=== PATIENT | female | born 1985 | race Caucasian/White ===

== ENCOUNTER 2020-09-12 09:45 | Outpatient (RCR) | payer OTHER, SELFPAY ==
--- NOTE | 2020-07-17 12:00 | PT.OPPOC ---
Physical, Occupational & Speech Therapy At [facility] Current Diagnoses Sciatica, unspecified side (07/17/20) Pelvic and perineal pain (07/17/20) Encounter for supervision of normal , unspecified, unspecified trimester (07/17/20) Visit Care Team Role Provider Type GLADYS Pinto Attending Provider Non-Staff Primary Care Provider Referring Provider Specialty: Obstetrics Address: [address] [place] [address], [id number] Email: Plan Of Care PT-OP-T Assessment and Plan Start: 07/17/20 14:35 Freq: Status: Active Protocol: Document 07/17/20 12:00 [facility] (Rec: 07/29/20 10:48 [facility] [email or web address]) Physical Therapy Assessment Rehab Potential Rehabilitation Potential Good Evaluation Complexity Number of Personal Factors/Comorbidities 0 Number of Body Systems Impaired 1-2 Clinical Presentation at Evaluation Stable Impairments Impairments Activity Tolerance,Functional Activities,Pain,Posture,ROM, Soft Tissue Mobility,Strength Goals lumbar muscle guarding Sewer Repairer Goal (LTG) With stretches and manual therapy techniques Velma is able improve the length of her lumbar paraspinals and reduce guarding. LTG Duration 6 weeks Pt stands in a increased lumbar lordotic posture Short Term Goal (STG) PT is educated on postural correction to decrease anterior pelvic tilt and pubic bone pain STG Duration 2 weeks pubic and tail bone pain from 4-7/10 Short Term Goal (STG) pt is educated in SI belt for help locking in the SI joint STG Duration 2 weeks Senior Care Goal (LTG) Pt is able to work on stabilizing exercises to help keep SI joint in alignment LTG Duration 6 weeks Assessment Summary Assessment Velma is a 35 year old female 2 para 1 who is 30 weeks with her second baby. She has been experiencing pubic bone and tail pain since May and symptoms are progressing. She has complaints of sciatic symptoms on her left which are also worsening the farther along she is with her . Velma reports feeling as if my bones hurt With examination today Velma stands with a increased lumbar lordosis and guarding of the lumbar parapspinals. She stands in a anterior pelvic tilt with her pelvis. With special tests for the SI joint her SI joint unlocks. She has a stretch weakness of the transverse abdominal muscles and instability of the SI joint with . Today time was spent on educating how to brace the SI with specific exercises, body mechanics training to help reduce strain to the SI joint and stretches to help with low back tightness. Velma will benefit from PT focusing on reducing low back tightness, stabilization exercises, SI belt for help during the remainder of her , and manual therapy techniques to help reduce muscle guarding and pain. Physical Therapy Plan Frequency and Duration Frequency of Treatment 1x/Week Duration of Treatment 8 Plan of Care Start Date 07/17/20 Plan of Care End Date 09/11/20 Therapeutic Interventions Therapeutic Interventions Home Exercise Program,Manual Therapy,Neuromuscular Re- education,Patient/Caregiver Education,Self-Care/Home Management,Soft Tissue Mobilization,Therapeutic Exercises Next Visit Focus/Plan Next Note Type Treatment Note Next Visit Plan check SI alignment, review stabilization exercises and work on manual release of the piriformis B Plan of Care Dates Plan of Care Start Date 07/17/20 Plan of Care End Date 09/11/20 Electronically Signed by: Radha Martinez, PT 07/29/20 [id number] Please Sign and Return: I have reviewed this Plan of Care and certify that the skilled therapy services above are required to meet the patient?s needs. Physician Signature Date Printed Name and Credentials Clinical Instructor Signature Printed Name and Credentials
--- NOTE | 2020-07-17 12:00 | PT.OIE ---
Current Diagnoses Sciatica, unspecified side (07/17/20) Pelvic and perineal pain (07/17/20) Encounter for supervision of normal , unspecified, unspecified trimester (07/17/20) Visit Care Team Role Provider Type GLADYS Pinto Attending Provider Non-Staff Primary Care Provider Referring Provider Specialty: Obstetrics Address: [address] [place], [place] [id number] Email: Physical Therapy Initial Evaluation PT-OP-A Visit Information Start: 07/17/20 12:10 Freq: Status: Active Protocol: Document 07/17/20 12:00 [facility] (Rec: 07/29/20 10:42 [facility] [email or web address]) Out-Patient Physical Therapy Visit Information Visit Information Visit Type Initial Evaluation Visit Start Time 12:00 Visit Stop Time 12:45 Total Visit Minutes 45 Visit Number 1 Evaluation Information Evaluation Date 07/17/20 PT-OP-B Current Condition Start: 07/17/20 12:10 Freq: Status: Active Protocol: Document 07/17/20 12:00 [facility] (Rec: 07/17/20 12:21 [facility] [id number]) Current Condition History of Current Condition Onset Date May 2020 Current Complaints pubic bone pain and tailbone pain in History of Current Condition 30 weeks , pain has been ongoing since May. Symptoms started with pubic bone pain at first. She feels like she traumatized her tailbone last pain at this point radiates from the tailbone. She feels like her bones hurt. Her daughter just turned 2. The plan is for vaginal delivery again. September 25 is due date. SHe can feel sciatic symptoms on her left. Some history of urinary urgency. Treatment Goals Patient/Caregiver Goals pt would like to decrease her pain with PT-OP-F Manual Assessment Start: 07/17/20 14:35 Freq: Status: Active Protocol: Document 07/17/20 12:00 [facility] (Rec: 07/29/20 10:57 [facility] [email or web address]) Manual Assessments Soft Tissue Assessment Soft Tissue Mobility Assessment lumbar paraspinal guarding and tightness, piriformis tightness bilaterally Joint Mobility Assessment Joint Mobility Assessment Instability of the SI joint with PT-OP-J Posture/Palpation/Skin Start: 07/17/20 14:35 Freq: Status: Active Protocol: Document 07/17/20 12:00 [facility] (Rec: 07/17/20 14:40 [facility] [email or web address]) Posture Evaluation Comments Posture Comments increased lumbar lordisos and anterior pelvic tilt Palpation Assessment Location piriformis Palpation Findings Spasm,Muscle Guarding Palpation Details tightness of the piriformis bilaterally lumbar paraspinals Palpation Details tightness and muscle guarding of the lumbar paraspinals PT-OP-K Range of Motion Start: 07/17/20 14:35 Freq: Status: Active Protocol: Document 07/17/20 12:00 [facility] (Rec: 07/29/20 10:57 [facility] [email or web address]) Lumbar Spine Range of Motion Lumbar Spine Active ROM Limitations Soft Tissue Tightness,Pain Comments Decreased lumbar ROM into flexion PT-OP-Q Treatments Start: 07/17/20 14:35 Freq: Status: Active Protocol: Document 07/17/20 12:00 [facility] (Rec: 07/17/20 14:39 [facility] [email or web address]) Therapeutic Exercises Supine Exercises supine ball squeeze Reps/Minutes x 10 reps Other Exercises piriformis stretch Comments firgure 4 if pt is okay being on her back quadruped TA Reps/Minutes 10 seconds on 10 seconds off x 10 reps gregorio pose Reps/Minutes 1-2 reps holding 30-60 seconds cat cow Reps/Minutes x 10 reps PT-OP-T Assessment and Plan Start: 07/17/20 14:35 Freq: Status: Active Protocol: Document 07/17/20 12:00 [facility] (Rec: 07/29/20 10:48 [facility] [email or web address]) Physical Therapy Assessment Rehab Potential Rehabilitation Potential Good Evaluation Complexity Number of Personal Factors/Comorbidities 0 Number of Body Systems Impaired 1-2 Clinical Presentation at Evaluation Stable Impairments Impairments Activity Tolerance,Functional Activities,Pain,Posture,ROM, Soft Tissue Mobility,Strength Goals lumbar muscle guarding Snipper Goal (LTG) With stretches and manual therapy techniques Velma is able improve the length of her lumbar paraspinals and reduce guarding. LTG Duration 6 weeks Pt stands in a increased lumbar lordotic posture Short Term Goal (STG) PT is educated on postural correction to decrease anterior pelvic tilt and pubic bone pain STG Duration 2 weeks pubic and tail bone pain from 4-7/10 Short Term Goal (STG) pt is educated in SI belt for help locking in the SI joint STG Duration 2 weeks Snipper Goal (LTG) Pt is able to work on stabilizing exercises to help keep SI joint in alignment LTG Duration 6 weeks Assessment Summary Assessment Velma is a 35 year old female 2 para 1 who is 30 weeks with her second baby. She has been experiencing pubic bone and tail pain since may and symptoms are progressing. She has complaints of sciatic symptoms on her left which are also worsening the farther along she is with her . Velma reports feeling as if my bones hurt With examination today Velma stands with a increased lumbar lordosis and guarding of the lumbar parapspinals. She stands in a anterior pelvic tilt with her pelvis. With special tests for the SI joint her SI joint unlocks. She has a stretch weakness of the transverse abdominal muscles and instability of the SI joint with . Today time was spent on educating how to brace the SI with specific exercises, body mechanics training to help reduce strain to the SI joint and stretches to help with low back tightness. Velma will benefit from PT focusing on reducing low back tightness, stabilization exercises, SI belt for help during the remainder of her , and manual therapy techniques to help reduce muscle guarding and pain. Physical Therapy Plan Frequency and Duration Frequency of Treatment 1x/Week Duration of Treatment 8 Plan of Care Start Date 07/17/20 Plan of Care End Date 09/11/20 Therapeutic Interventions Therapeutic Interventions Home Exercise Program,Manual Therapy,Neuromuscular Re- education,Patient/Caregiver Education,Self-Care/Home Management,Soft Tissue Mobilization,Therapeutic Exercises Next Visit Focus/Plan Next Note Type Treatment Note Next Visit Plan check SI alignment, review stabilization exercises and work on manual release of the piriformis B
--- NOTE | 2020-08-15 10:57 | PT.OTN ---
Current Diagnoses Sciatica, unspecified side (08/15/20) Pelvic and perineal pain (08/15/20) Encounter for supervision of normal , unspecified, unspecified trimester (08/15/20) Physical Therapy Treatment Note PT-OP-A Visit Information Start: 07/17/20 12:10 Freq: Status: Active Protocol: Document 08/15/20 10:00 [facility] (Rec: 08/15/20 10:08 [facility] [id number]) Out-Patient Physical Therapy Visit Information Visit Information Visit Type Treatment Note Visit Start Time 09:45 Visit Stop Time 10:30 Total Visit Minutes 45 Visit Number 2 PT-OP-B Current Condition Start: 07/17/20 12:10 Freq: Status: Active Protocol: Document 07/17/20 12:00 [facility] (Rec: 07/17/20 12:21 [facility] [id number]) Current Condition History of Current Condition Onset Date May 2020 Current Complaints pubic bone pain and tailbone pain in History of Current Condition 30 weeks , pain has been ongoing since May. Symptoms started with pubic bone pain at first. She feels like she traumatized her tailbone last pain at this point radiates from the tailbone. She feels like her bones hurt. Her daughter just turned 2. The plan is for vaginal delivery again. September 25 is due date. SHe can feel sciatic symptoms on her left. Some history of urinary urgency. Treatment Goals Patient/Caregiver Goals pt would like to decrease her pain with PT-OP-C Subjective Start: 07/17/20 12:10 Freq: Status: Active Protocol: Document 08/15/20 10:00 [facility] (Rec: 08/15/20 10:08 [facility] [id number]) OP-PT Subjective Patient Comments Patient Comments pt has been working on her stetches at home PT-OP-F Manual Assessment Start: 07/17/20 14:35 Freq: Status: Active Protocol: Document 07/17/20 12:00 [facility] (Rec: 07/29/20 10:57 [facility] [email or web address]) Manual Assessments Soft Tissue Assessment Soft Tissue Mobility Assessment lumbar paraspinal guarding and tightness, piriformis tightness bilaterally Joint Mobility Assessment Joint Mobility Assessment Instability of the SI joint with PT-OP-J Posture/Palpation/Skin Start: 07/17/20 14:35 Freq: Status: Active Protocol: Document 07/17/20 12:00 [facility] (Rec: 07/17/20 14:40 [facility] [email or web address]) Posture Evaluation Comments Posture Comments increased lumbar lordisos and anterior pelvic tilt Palpation Assessment Location piriformis Palpation Findings Spasm,Muscle Guarding Palpation Details tightness of the piriformis bilaterally lumbar paraspinals Palpation Details tightness and muscle guarding of the lumbar paraspinals PT-OP-K Range of Motion Start: 07/17/20 14:35 Freq: Status: Active Protocol: Document 07/17/20 12:00 [facility] (Rec: 07/29/20 10:57 [facility] [email or web address]) Lumbar Spine Range of Motion Lumbar Spine Active ROM Limitations Soft Tissue Tightness,Pain Comments Decreased lumbar ROM into flexion PT-OP-Q Treatments Start: 07/17/20 14:35 Freq: Status: Active Protocol: Document 08/15/20 10:51 [facility] (Rec: 08/15/20 10:57 [facility] [email or web address]) Therapeutic Exercises Other Exercises quadruped thoracic extension Reps/Minutes x 10 reps quadruped sidebends Reps/Minutes x 10 each piriformis stretch Comments worked on a stretch in quadruped quadruped TA Reps/Minutes 10 seconds on 10 seconds off x 10 reps gregorio pose Reps/Minutes 1-2 reps holding 30-60 seconds cat cow Reps/Minutes x 10 reps Manual Therapy Treatment Soft Tissue Mobilization STM to the low back and sacral region Comments pt positioned on the pillow in prone. She tolerated this well without complaints. Tightness in the piriformis and quadratus lumborum noted. PT-OP-T Assessment and Plan Start: 07/17/20 14:35 Freq: Status: Active Protocol: Document 08/15/20 10:51 [facility] (Rec: 08/15/20 10:57 [facility] [email or web address]) Physical Therapy Assessment Assessment Summary Assessment pt working on her stretches at home, notes sitting on a stool without back support aggravates her SI joint. Symptoms seem a little better today, pt tolerated STM treatment well without complaints. Sciatic pain seems to have decreased, pt notes one episode after sitting unsupported where she had to climb stairs for her daughter. This brought on temporary nerve pain. We discussed sitting with feet supported on floor and back support of able Physical Therapy Plan Frequency and Duration Frequency of Treatment 1x/Week Duration of Treatment 8 Plan of Care Start Date 07/17/20 Plan of Care End Date 09/11/20 Therapeutic Interventions Therapeutic Interventions Home Exercise Program,Manual Therapy,Neuromuscular Re- education,Patient/Caregiver Education,Self-Care/Home Management,Soft Tissue Mobilization,Therapeutic Exercises Next Visit Focus/Plan Next Note Type Progress Note Next Visit Plan continue working on releasing the paraspinal muscle tightness, review exercises given today and recheck SI alignment.
--- NOTE | 2020-09-05 17:59 | PT.OTN ---
Current Diagnoses Sciatica, unspecified side (09/05/20) Pelvic and perineal pain (09/05/20) Encounter for supervision of normal , unspecified, unspecified trimester (09/05/20) Physical Therapy Treatment Note PT-OP-A Visit Information Start: 07/17/20 12:10 Freq: Status: Active Protocol: Document 09/05/20 17:53 [facility] (Rec: 09/05/20 17:59 [facility] [id number]) Out-Patient Physical Therapy Visit Information Visit Information Visit Type Treatment Note Visit Start Time 09:00 Visit Stop Time 09:45 Total Visit Minutes 45 Visit Number 3 PT-OP-B Current Condition Start: 07/17/20 12:10 Freq: Status: Active Protocol: Document 07/17/20 12:00 [facility] (Rec: 07/17/20 12:21 [facility] [id number]) Current Condition History of Current Condition Onset Date May 2020 Current Complaints pubic bone pain and tailbone pain in History of Current Condition 30 weeks , pain has been ongoing since May. Symptoms started with pubic bone pain at first. She feels like she traumatized her tailbone last pain at this point radiates from the tailbone. She feels like her bones hurt. Her daughter just turned 2. The plan is for vaginal delivery again. September 25 is due date. SHe can feel sciatic symptoms on her left. Some history of urinary urgency. Treatment Goals Patient/Caregiver Goals pt would like to decrease her pain with PT-OP-C Subjective Start: 07/17/20 12:10 Freq: Status: Active Protocol: Document 09/05/20 09:03 [facility] (Rec: 09/05/20 09:11 [facility] [id number]) OP-PT Subjective Patient Comments Patient Comments pt notes she feels swelling and pressure but it doesn't necessarly feel the bone. SHe has tried the SI belt but can really only, she is feeling sciatic pain she cant even do milod activity for the day it makes her uncomfortable or sore. SHe does her exercises and feels less pressure and stretches but then hours later she feels sore again. She is due September 25 PT-OP-F Manual Assessment Start: 07/17/20 14:35 Freq: Status: Active Protocol: Document 07/17/20 12:00 [facility] (Rec: 07/29/20 10:57 [facility] [email or web address]) Manual Assessments Soft Tissue Assessment Soft Tissue Mobility Assessment lumbar paraspinal guarding and tightness, piriformis tightness bilaterally Joint Mobility Assessment Joint Mobility Assessment Instability of the SI joint with PT-OP-J Posture/Palpation/Skin Start: 07/17/20 14:35 Freq: Status: Active Protocol: Document 07/17/20 12:00 [facility] (Rec: 07/17/20 14:40 [facility] [email or web address]) Posture Evaluation Comments Posture Comments increased lumbar lordisos and anterior pelvic tilt Palpation Assessment Location piriformis Palpation Findings Spasm,Muscle Guarding Palpation Details tightness of the piriformis bilaterally lumbar paraspinals Palpation Details tightness and muscle guarding of the lumbar paraspinals PT-OP-K Range of Motion Start: 07/17/20 14:35 Freq: Status: Active Protocol: Document 07/17/20 12:00 [facility] (Rec: 07/29/20 10:57 [facility] [email or web address]) Lumbar Spine Range of Motion Lumbar Spine Active ROM Limitations Soft Tissue Tightness,Pain Comments Decreased lumbar ROM into flexion PT-OP-Q Treatments Start: 07/17/20 14:35 Freq: Status: Active Protocol: Document 09/05/20 17:53 [facility] (Rec: 09/05/20 17:59 [facility] [id number]) Therapeutic Exercises Supine Exercises supine ball squeeze Reps/Minutes x 10 reps Other Exercises seated iliopsoas stretch on exercise ball Reps/Minutes 2 reps holding 30-60 seconds seated pelvic tilts on exercise ball Reps/Minutes x 10 reps quadruped sidebends Reps/Minutes x 10 each gregorio pose Reps/Minutes 1-2 reps holding 30-60 seconds cat cow Reps/Minutes x 10 reps Manual Therapy Treatment Soft Tissue Mobilization STM to the low back and sacral region Comments pt positioned on the pillow in prone. She tolerated this well without complaints. Tightness in the piriformis and quadratus lumborum noted. Manual Techniques manual iliopsoas stretch in supne B Reps/Duration 1-2 Comments good tolerance, iliopsoas tightness B PT-OP-T Assessment and Plan Start: 07/17/20 14:35 Freq: Status: Active Protocol: Document 09/05/20 17:53 [facility] (Rec: 09/05/20 17:59 [facility] [id number]) Physical Therapy Assessment Assessment Summary Assessment added on seated ball stretches and iliopsoas stretch. We talked about staying symmetrical in her SI joint and trying to not push her activity level these next three weeks prior to delivery Physical Therapy Plan Frequency and Duration Frequency of Treatment 1x/Week Duration of Treatment 8 Plan of Care Start Date 07/17/20 Plan of Care End Date 09/11/20 Therapeutic Interventions Therapeutic Interventions Home Exercise Program,Manual Therapy,Neuromuscular Re- education,Patient/Caregiver Education,Self-Care/Home Management,Soft Tissue Mobilization,Therapeutic Exercises Next Visit Focus/Plan Next Note Type Progress Note Next Visit Plan continue working on releasing the paraspinal muscle tightness, review exercises given today and recheck SI alignment.
--- NOTE | 2020-09-12 17:19 | PT.OTN ---
Current Diagnoses Sciatica, unspecified side (09/12/20) Pelvic and perineal pain (09/12/20) Encounter for supervision of normal , unspecified, unspecified trimester (09/12/20) Physical Therapy Treatment Note PT-OP-A Visit Information Start: 07/17/20 12:10 Freq: Status: Active Protocol: Document 09/12/20 09:45 [facility] (Rec: 09/12/20 10:01 [facility] [id number]) Out-Patient Physical Therapy Visit Information Visit Information Visit Type Treatment Note Visit Start Time 09:45 Visit Stop Time 10:30 Total Visit Minutes 45 Visit Number 4 PT-OP-B Current Condition Start: 07/17/20 12:10 Freq: Status: Active Protocol: Document 07/17/20 12:00 [facility] (Rec: 07/17/20 12:21 [facility] [id number]) Current Condition History of Current Condition Onset Date May 2020 Current Complaints pubic bone pain and tailbone pain in History of Current Condition 30 weeks , pain has been ongoing since May. Symptoms started with pubic bone pain at first. She feels like she traumatized her tailbone last pain at this point radiates from the tailbone. She feels like her bones hurt. Her daughter just turned 2. The plan is for vaginal delivery again. September 25 is due date. SHe can feel sciatic symptoms on her left. Some history of urinary urgency. Treatment Goals Patient/Caregiver Goals pt would like to decrease her pain with PT-OP-C Subjective Start: 07/17/20 12:10 Freq: Status: Active Protocol: Document 09/12/20 09:45 [facility] (Rec: 09/12/20 10:01 [facility] [id number]) OP-PT Subjective Patient Comments Patient Comments pain is inconsistent, doing stretches every day to try and keep out of pain. Left side hip flexor was sore yesterday but feels better today. PT-OP-F Manual Assessment Start: 07/17/20 14:35 Freq: Status: Active Protocol: Document 07/17/20 12:00 [facility] (Rec: 07/29/20 10:57 [facility] [email or web address]) Manual Assessments Soft Tissue Assessment Soft Tissue Mobility Assessment lumbar paraspinal guarding and tightness, piriformis tightness bilaterally Joint Mobility Assessment Joint Mobility Assessment Instability of the SI joint with PT-OP-J Posture/Palpation/Skin Start: 07/17/20 14:35 Freq: Status: Active Protocol: Document 07/17/20 12:00 [facility] (Rec: 07/17/20 14:40 [facility] [email or web address]) Posture Evaluation Comments Posture Comments increased lumbar lordisos and anterior pelvic tilt Palpation Assessment Location piriformis Palpation Findings Spasm,Muscle Guarding Palpation Details tightness of the piriformis bilaterally lumbar paraspinals Palpation Details tightness and muscle guarding of the lumbar paraspinals PT-OP-K Range of Motion Start: 07/17/20 14:35 Freq: Status: Active Protocol: Document 07/17/20 12:00 [facility] (Rec: 07/29/20 10:57 [facility] [email or web address]) Lumbar Spine Range of Motion Lumbar Spine Active ROM Limitations Soft Tissue Tightness,Pain Comments Decreased lumbar ROM into flexion PT-OP-Q Treatments Start: 07/17/20 14:35 Freq: Status: Active Protocol: Document 09/12/20 09:45 [facility] (Rec: 09/12/20 17:17 [facility] [email or web address]) Therapeutic Exercises Supine Exercises supine ball squeeze Reps/Minutes x 10 reps Manual Therapy Treatment Soft Tissue Mobilization STM to the low back and sacral region Comments pt positioned on the pillow in prone. She tolerated this well without complaints. Tightness in the piriformis and quadratus lumborum noted. Manual Techniques manual iliopsoas stretch in supne B Reps/Duration 1-2 Comments good tolerance, iliopsoas tightness B Self-Care/Home Management Treatment Education Patient Education Body Mechanics,Joint Protection PT-OP-T Assessment and Plan Start: 07/17/20 14:35 Freq: Status: Active Protocol: Document 09/12/20 09:45 [facility] (Rec: 09/12/20 17:17 [facility] [email or web address]) Physical Therapy Assessment Assessment Summary Assessment Today was Jenna last visit in PT and she is due in 2 weeks. She shows independence with her HEP. She was symmetrical with her SI joint today but we did go through body mechanics for avoiding single leg stance activities, labor positions, and post SI belt use. Physical Therapy Plan Discharge Physical Therapy Discharge Reasons Change in Medical Status Discharge Comments Pt will be delivering her baby in two weeks.
== END 2020-09-13 13:49 | disposition home or self-care (01) ==
LOC: PHYS 09:45
PROVIDERS: PCP Nurse Practitioner Obstetrics & Gynecology; Referring Provider Nurse Practitioner Obstetrics & Gynecology; Visit Provider Nurse Practitioner Obstetrics & Gynecology
DX: R10.2 Pelvic and perineal pain (principal); M54.30 Sciatica, unspecified side; Z34.90 Encounter for supervision of normal pregnancy, unspecified, unspecified trimester
CPT/HCPCS: 97110; 97140; 97161